=== PATIENT | male | born 1950 | race Caucasian/White ===

== ENCOUNTER 2020-03-24 14:24 | Emergency (ER) | payer MEDICARE ==
[2020-03-24] MEDS ORDERED: Lisinopril 20 MG Tab PO STA (15:07)
--- NOTE | 2020-03-24 15:11 | EDM.PDOC ---
ED HPI GENERAL MEDICAL PROBLEM - General Chief Complaint: Neuro Symptoms/Deficits Stated Complaint: WEAK FOR THE PAST WEEK Time Seen by Provider: 03/24/20 14:56 Source of Information: Reports: Patient, RN Notes Reviewed History Limitations: Reports: No Limitations - History of Present Illness INITIAL COMMENTS - FREE TEXT/NARRATIVE: 69-year-old gentleman presents emergency department a complaint of weakness and some confusion he states it has been going on for the last week or so he is also noticed some problems with his balance he admits that he has high blood pressure but is never taken any medication for it. Very poor historian difficult to assess - Related Data Allergies Allergy/AdvReac Type Severity Reaction Status Date / Time No Known Allergies Allergy Verified 03/24/20 14:53 Home Meds: Home Meds lisinopriL [Lisinopril] 10 mg PO DAILY #30 tablet 03/24/20 [Rx] metFORMIN [Glucophage XR] 500 mg PO DAILY 03/24/20 [History] Past Medical History HEENT History: Reports: Impaired Vision Psychiatric History: Reports: Depression Endocrine/Metabolic History: Reports: Diabetes, Type II - Infectious Disease History Infectious Disease History: Reports: Chicken Pox, Measles - Past Surgical History GI Surgical History: Reports: Appendectomy Social & Family History - Tobacco Use Tobacco Use Status *Q: Current Every Day Tobacco User Years of Tobacco use: 20 Packs/Tins Daily: 0.5 - Caffeine Use Caffeine Use: Reports: Soda - Recreational Drug Use Recreational Drug Use: No ED ROS GENERAL - Review of Systems Review Of Systems: See Below Constitutional: Reports: Weakness, Fatigue. Denies: Fever HEENT: Reports: No Symptoms Respiratory: Reports: No Symptoms Cardiovascular: Reports: No Symptoms GI/Abdominal: Reports: No Symptoms Neurological: Reports: Confusion ED EXAM, NEURO - Physical Exam Exam: See Below Exam Limited By: No Limitations General Appearance: Alert, WD/WN, No Apparent Distress Respiratory/Chest: No Respiratory Distress, Lungs Clear, Normal Breath Sounds, No Accessory Muscle Use, Chest Non-Tender Cardiovascular: Regular Rate, Rhythm, No Murmur GI/Abdominal: Soft, Non-Tender Neurological: Alert, CN II-XII Intact, No Motor/Sensory Deficits, Oriented x 3. No: Abnormal Finger to Nose, Difficulty Walking Back Exam: Normal Inspection, Full Range of Motion. No: CVA Tenderness (R), CVA Tenderness (L) Extremities: No Pedal Edema Skin Exam: Warm, Dry Course - Vital Signs Last Recorded V/S: Last Vital Signs Temp 96.5 F L 03/24/20 14:47 Pulse 82 03/24/20 16:43 Resp 21 H 03/24/20 16:09 BP 155/89 H 03/24/20 16:43 Pulse Ox 97 03/24/20 16:09 - Orders/Labs/Meds Orders: Active Orders 24 hr Category Date Time Status EKG Documentation Completion [RC] ASDIRECTED Care 03/24/20 15:08 Active Chest 2V [CR] Stat Exams 03/24/20 15:07 Taken EKG 12 Lead [EK] Stat Ther 03/24/20 15:07 Ordered Labs: Laboratory Tests 03/24/20 03/24/20 03/24/20 Range/Units 15:20 15:20 15:20 WBC 6.1 (4.5-11.0) K/uL RBC 5.52 (4.30-5.90) M/uL Hgb 16.7 H (12.0-15.0) g/dL Hct 48.2 (40.0-54.0) % MCV 87 (80-98) fL MCH 30 (27-31) pg MCHC 35 (32-36) % Plt Count 179 (150-400) K/uL Neut % (Auto) 57 (36-66) % Lymph % (Auto) 28 (24-44) % [place] % (Auto) 7 H (2-6) % Eos % (Auto) 6 H (2-4) % Baso % (Auto) 1 (0-1) % D-Dimer, Quantitative (0.0-500.0) ng/mL Sodium 141 (140-148) mmol/L Potassium 3.9 (3.6-5.2) mmol/L Chloride 105 (100-108) mmol/L Carbon Dioxide 26 (21-32) mmol/L Anion Gap 9.6 (5.0-14.0) mmol/L BUN 18 (7-18) mg/dL Creatinine 1.3 (0.8-1.3) mg/dL Est Cr Clr Drug Dosing 49.43 mL/min Estimated GFR (MDRD) 55 L (>60) Glucose 147 H (74-106) mg/dL Lactic Acid (0.4-2.0) mmol/L Calcium 8.8 (8.5-10.1) mg/dL Total Bilirubin 1.2 H (0.2-1.0) mg/dL AST 20 (15-37) U/L ALT 37 (12-78) U/L Alkaline Phosphatase 55 (46-116) U/L Ammonia 14 (11-32) mmol/L Troponin I < 0.017 (0.000-0.056) ng/mL NT-Pro-B Natriuret Pep (5-125) pg/mL Total Protein 7.0 (6.4-8.2) g/dL Albumin 3.7 (3.4-5.0) g/dL Globulin 3.3 (2.3-3.5) g/dL Albumin/Globulin Ratio 1.1 L (1.2-2.2) Urine Color (YELLOW) Urine Appearance (CLEAR) Urine pH (5.0-8.0) Ur Specific [place] (1.008-1.030) Urine Protein (NEGATIVE) mg/dL Urine Glucose (UA) (NEGATIVE) mg/dL Urine Ketones (NEGATIVE) mg/dL Urine Occult Blood (NEGATIVE) Urine Nitrite (NEGATIVE) Urine Bilirubin (NEGATIVE) Urine Urobilinogen (0.2-1.0) EU/dL Ur Leukocyte Esterase (NEGATIVE) Urine RBC (0-5) Urine WBC (0-5) Ur Epithelial Cells Amorphous Sediment Urine Bacteria Urine Mucus Ethyl Alcohol mg/dL 03/24/20 03/24/20 03/24/20 Range/Units 15:20 15:20 15:20 WBC (4.5-11.0) K/uL RBC (4.30-5.90) M/uL Hgb (12.0-15.0) g/dL Hct (40.0-54.0) % MCV (80-98) fL MCH (27-31) pg MCHC (32-36) % Plt Count (150-400) K/uL Neut % (Auto) (36-66) % Lymph % (Auto) (24-44) % [place] % (Auto) (2-6) % Eos % (Auto) (2-4) % Baso % (Auto) (0-1) % D-Dimer, Quantitative 580.03 H (0.0-500.0) ng/mL Sodium (140-148) mmol/L Potassium (3.6-5.2) mmol/L Chloride (100-108) mmol/L Carbon Dioxide (21-32) mmol/L Anion Gap (5.0-14.0) mmol/L BUN (7-18) mg/dL Creatinine (0.8-1.3) mg/dL Est Cr Clr Drug Dosing mL/min Estimated GFR (MDRD) (>60) Glucose (74-106) mg/dL Lactic Acid 1.1 (0.4-2.0) mmol/L Calcium (8.5-10.1) mg/dL Total Bilirubin (0.2-1.0) mg/dL AST (15-37) U/L ALT (12-78) U/L Alkaline Phosphatase (46-116) U/L Ammonia (11-32) mmol/L Troponin I (0.000-0.056) ng/mL NT-Pro-B Natriuret Pep (5-125) pg/mL Total Protein (6.4-8.2) g/dL Albumin (3.4-5.0) g/dL Globulin (2.3-3.5) g/dL Albumin/Globulin Ratio (1.2-2.2) Urine Color (YELLOW) Urine Appearance (CLEAR) Urine pH (5.0-8.0) Ur Specific [place] (1.008-1.030) Urine Protein (NEGATIVE) mg/dL Urine Glucose (UA) (NEGATIVE) mg/dL Urine Ketones (NEGATIVE) mg/dL Urine Occult Blood (NEGATIVE) Urine Nitrite (NEGATIVE) Urine Bilirubin (NEGATIVE) Urine Urobilinogen (0.2-1.0) EU/dL Ur Leukocyte Esterase (NEGATIVE) Urine RBC (0-5) Urine WBC (0-5) Ur Epithelial Cells Amorphous Sediment Urine Bacteria Urine Mucus Ethyl Alcohol < 3 mg/dL 03/24/20 03/24/20 Range/Units 15:20 16:52 WBC (4.5-11.0) K/uL RBC (4.30-5.90) M/uL Hgb (12.0-15.0) g/dL Hct (40.0-54.0) % MCV (80-98) fL MCH (27-31) pg MCHC (32-36) % Plt Count (150-400) K/uL Neut % (Auto) (36-66) % Lymph % (Auto) (24-44) % [place] % (Auto) (2-6) % Eos % (Auto) (2-4) % Baso % (Auto) (0-1) % D-Dimer, Quantitative (0.0-500.0) ng/mL Sodium (140-148) mmol/L Potassium (3.6-5.2) mmol/L Chloride (100-108) mmol/L Carbon Dioxide (21-32) mmol/L Anion Gap (5.0-14.0) mmol/L BUN (7-18) mg/dL Creatinine (0.8-1.3) mg/dL Est Cr Clr Drug Dosing mL/min Estimated GFR (MDRD) (>60) Glucose (74-106) mg/dL Lactic Acid (0.4-2.0) mmol/L Calcium (8.5-10.1) mg/dL Total Bilirubin (0.2-1.0) mg/dL AST (15-37) U/L ALT (12-78) U/L Alkaline Phosphatase (46-116) U/L Ammonia (11-32) mmol/L Troponin I (0.000-0.056) ng/mL NT-Pro-B Natriuret Pep 689 H (5-125) pg/mL Total Protein (6.4-8.2) g/dL Albumin (3.4-5.0) g/dL Globulin (2.3-3.5) g/dL Albumin/Globulin Ratio (1.2-2.2) Urine Color Yellow (YELLOW) Urine Appearance Clear (CLEAR) Urine pH 5.0 (5.0-8.0) Ur Specific [place] 1.025 (1.008-1.030) Urine Protein 100 H (NEGATIVE) mg/dL Urine Glucose (UA) Negative (NEGATIVE) mg/dL Urine Ketones Negative (NEGATIVE) mg/dL Urine Occult Blood Moderate H (NEGATIVE) Urine Nitrite Negative (NEGATIVE) Urine Bilirubin Negative (NEGATIVE) Urine Urobilinogen 0.2 (0.2-1.0) EU/dL Ur Leukocyte Esterase Negative (NEGATIVE) Urine RBC 0-5 (0-5) Urine WBC Not seen (0-5) Ur Epithelial Cells Not seen Amorphous Sediment Moderate Urine Bacteria Not seen Urine Mucus Many Ethyl Alcohol mg/dL Meds: Medications Discontinued Medications Generic Name Dose Route Start Last Admin Trade Name Uriah PRN Reason Stop Dose Admin Lisinopril 20 mg 03/24/20 15:07 03/24/20 15:13 Prinivil PO 03/24/20 15:08 20 mg NOW STA Administration Departure - Departure Time of Disposition: 17:14 Disposition: Home, Self-Care 01 Condition: Fair Clinical Impression: Hypertensive urgency - Discharge Information Instructions: Hypertension, Adult, [id number] Referrals: PCP,None [Primary Care Provider] - Forms: ED Department Discharge Additional Instructions: Try the lisinopril 1 tablet daily, please follow-up with your primary care in the next 3 to 5 days for reevaluation, call return to the emergency department worsening of symptoms Sepsis Event Note (ED) - Evaluation Sepsis Screening Result: No Definite Risk - Focused Exam Vital Signs: Vital Signs Temp Pulse Resp BP BP Pulse Ox 03/24/20 16:43 82 155/89 H 03/24/20 16:09 70 21 H 173/88 H 97 03/24/20 15:13 217/107 H 03/24/20 14:47 96.5 F L 86 22 H 217/107 H 96 - My Orders Last 24 Hours: My Active Orders 03/24/20 15:07 Chest 2V [CR] Stat EKG 12 Lead [EK] Stat 03/24/20 15:08 EKG Documentation Completion [RC] ASDIRECTED - Assessment/Plan Last 24 Hours: My Active Orders 03/24/20 15:07 Chest 2V [CR] Stat EKG 12 Lead [EK] Stat 03/24/20 15:08 EKG Documentation Completion [RC] ASDIRECTED Plan: Assessment Acuity = acute Site and laterality = hypertensive urgency Etiology = unknown Manifestations = confusion difficulty concentrating Location of injury = Home Lab values = CBC, CMP, troponin all within normal limits urinalysis unremarkable CT scan head does show chronic small vessel disease chest x-ray I did review films myself I cannot appreciate any acute process, the official read from radiology is pending Plan He had good improvement in his blood pressure with lisinopril prescription written for lisinopril 10 mg 1 tab p.o. daily he is can follow-up with his primary care in the next 3 to 5 days for reevaluation This note was dictated using [employer] voice recognition software please call with any questions on syntax or grammar.
--- NOTE | 2020-03-24 16:25 | CRLCT ---
INDICATION: Confusion. Tired. TECHNIQUE: Head CT without contrast. COMPARISON: None FINDINGS: CSF spaces: Prominence of the ventricles and the sulci likely due to age related volume loss. Brain parenchyma: Periventricular and subcortical white matter hypoattenuation is non specific but likely due to chronic small vessel ischemic changes. 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 No sign of mass, hemorrhage, or midline shift. Skull base and calvarium: The visualized paranasal sinuses and mastoid air cells demonstrate no acute or significant findings. The visualized orbits are grossly unremarkable. No skull fractures. IMPRESSION: No acute intracranial abnormality. Chronic small vessel ischemic changes and age related volume loss. Please note that all CT scans at this facility use dose modulation, iterative reconstruction, and/or weight-based dosing when appropriate to reduce radiation dose to as low as reasonably achievable. Dictated by Nima Leal MD @ Mar 24 2020 4:17PM Signed by Dr. Nima Leal @ Mar 24 2020 4:22PM
--- NOTE | 2020-03-25 10:12 | CR ---
CHEST: 2 view CLINICAL HISTORY:SOB COMPARISON:None FINDINGS: The heart size, pulmonary vascularity and hilar structures are normal. No infiltrate effusion or pneumothorax is seen. IMPRESSION: No acute cardiopulmonary process.
== END 2020-03-24 17:23 | disposition home or self-care (01) ==
LOC: JP.ED 14:24
DX: I16.0 Hypertensive urgency (principal); E11.9 Type 2 diabetes mellitus without complications; F17.210 Nicotine dependence, cigarettes, uncomplicated
CPT/HCPCS: 36415; 70450; 71046; 80053; 80307; 81001; 82140; 83605; 83880; 84484; 85025; 85379; 93005; 93010; 99284; 99285; A9270

== ENCOUNTER 2021-03-21 16:22 | Inpatient (IN) | payer MEDICARE ==
[2021-03-21] MEDS ORDERED: Lactated Ringers 1,000 ML IV SCH (16:30)
[2021-03-21] MEDS ORDERED: cefTRIAXone 2 GM in Sodium Chloride 0.9% 100 ML IV SCH (17:00)
[2021-03-21] MEDS ORDERED: Lactated Ringers 1,000 ML IV ONE ×2 (17:24→18:28)
[2021-03-21 17:54] LABS: CORONAVIRUS COVID-19 NAA NEGATIVE (NEGATIVE)
[2021-03-21] MEDS ORDERED: Nitroglycerin 0.4 MG Tab.SL SL ONE (18:10)
[2021-03-21] MEDS ORDERED: Labetalol 100 MG in Sodium Chloride 0.9% 80 ML IV SCH (19:00)
[2021-03-21] MEDS ORDERED: Labetalol 20 MG/4 ML Syringe ONE (19:18)
[2021-03-21] MEDS ORDERED: Sodium Chloride 0.9% 100 ML ONE (19:18)
[2021-03-21] MEDS ORDERED: OLANZapine 10 MG Vial IM ONE (19:56)
[2021-03-21] MEDS ORDERED: Water For Injection, Sterile 20 ML ONE (19:59)
[2021-03-21] MEDS: Piperacillin/Tazobactam 3.375 GM in Sodium Chloride 0.9% 50 ML IV SCH (20:47)
[2021-03-22] MEDS: Piperacillin/Tazobactam 3.375 GM in Sodium Chloride 0.9% 50 ML IV SCH ×2 (01:57→07:40)
[2021-03-22] MEDS ORDERED: Piperacillin/Tazobactam/Dext 3.375 GM in Premix Bag 1 BAG IV SCH (14:00)
[2021-03-22] MEDS ORDERED: Sodium Chloride 0.9% 10 ML Syringe FLUSH PRN (14:41)
[2021-03-22] MEDS ORDERED: Glucose Gel 15 GM in 37.5 GM Tube PO PRN (14:41)
[2021-03-22] MEDS ORDERED: Polyethylene Glycol 3350 Powder 17 GM Packet PO PRN (14:41)
[2021-03-22] MEDS ORDERED: 50% Dextrose in Water 50 ML Syringe IV PRN (14:41)
[2021-03-22] MEDS ORDERED: Ondansetron 4 MG/2 ML SDV IV PRN (14:41)
[2021-03-22] MEDS ORDERED: Acetaminophen 325 MG Tab PO PRN (14:41)
[2021-03-22] MEDS: Sodium Chloride 0.9% 1,000 ML IV SCH ×2 (15:04→21:23)
[2021-03-22] MEDS: Enoxaparin 40 MG/0.4 ML Syringe SUBCUT SCH (15:13)
[2021-03-22] MEDS: Insulin Lispro 100 Unit/ML 3 ML KwikPen SUBCUT SCH ×2 (17:35→22:29)
[2021-03-23] MEDS: hydrALAZINE 20 MG/ML SDV IVPUSH PRN ×3 (04:23→15:27)
[2021-03-23] MEDS: Sodium Chloride 0.9% 1,000 ML IV SCH (05:20)
[2021-03-23] MEDS: Insulin Lispro 100 Unit/ML 3 ML KwikPen SUBCUT SCH ×4 (08:30→20:24)
[2021-03-23] MEDS: Enoxaparin 40 MG/0.4 ML Syringe SUBCUT SCH (08:53)
[2021-03-23] MEDS ORDERED: Sodium Chloride 0.9% 1,000 ML IV SCH (11:30)
[2021-03-24] MEDS: hydrALAZINE 20 MG/ML SDV IVPUSH PRN ×3 (00:03→08:19)
[2021-03-24] MEDS: Insulin Lispro 100 Unit/ML 3 ML KwikPen SUBCUT SCH ×4 (08:16→21:24)
[2021-03-24] MEDS: Enoxaparin 40 MG/0.4 ML Syringe SUBCUT SCH (08:17)
[2021-03-24] MEDS ORDERED: Sodium Chloride 0.9% 1,000 ML IV SCH (09:45)
[2021-03-24] MEDS ORDERED: Piperacillin/Tazobactam 3.375 GM in Sodium Chloride 0.9% 50 ML IV SCH (09:45)
[2021-03-24] MEDS: Metoprolol Tartrate 5 MG/5 ML SDV IVPUSH SCH ×3 (10:17→22:45)
[2021-03-24] MEDS: Piperacillin/Tazobactam/Dext 3.375 GM in Premix Bag 1 BAG IV SCH ×3 (10:18→22:45)
[2021-03-24] MEDS: Dextrose 5% in Water 1,000 ML IV SCH (10:46)
[2021-03-25] MEDS: Metoprolol Tartrate 5 MG/5 ML SDV IVPUSH SCH ×4 (04:08→22:04)
[2021-03-25] MEDS: Piperacillin/Tazobactam/Dext 3.375 GM in Premix Bag 1 BAG IV SCH ×4 (04:08→22:03)
[2021-03-25] MEDS: Dextrose 5% in Water 1,000 ML IV SCH ×2 (06:22→23:58)
[2021-03-25] MEDS: Insulin Lispro 100 Unit/ML 3 ML KwikPen SUBCUT SCH ×4 (07:43→20:09)
[2021-03-25] MEDS: hydrALAZINE 20 MG/ML SDV IVPUSH PRN (07:51)
[2021-03-25] MEDS ORDERED: Dextrose 5% in Water 1,000 ML IV SCH (09:45)
[2021-03-25] MEDS: Enoxaparin 40 MG/0.4 ML Syringe SUBCUT SCH (09:48)
[2021-03-25] MEDS ORDERED: Acetaminophen 650 MG Supp RECTAL PRN (14:53)
[2021-03-25] MEDS ORDERED: Levofloxacin/Dextrose 5%-Water 750 MG in Premix Bag 1 BAG IV SCH (15:00)
[2021-03-26] MEDS: Piperacillin/Tazobactam/Dext 3.375 GM in Premix Bag 1 BAG IV SCH ×4 (03:57→21:23)
[2021-03-26] MEDS: Metoprolol Tartrate 5 MG/5 ML SDV IVPUSH SCH ×4 (03:57→21:15)
[2021-03-26] MEDS: Insulin Lispro 100 Unit/ML 3 ML KwikPen SUBCUT SCH ×4 (06:55→19:58)
[2021-03-26] MEDS: Enoxaparin 40 MG/0.4 ML Syringe SUBCUT SCH (08:36)
[2021-03-26] MEDS: Dextrose 5% in Water 1,000 ML IV SCH ×2 (10:47→21:22)
[2021-03-26] MEDS ORDERED: Gadoteridol 279.3 MG/ML 20 ML SDV IV SCH (13:00)
[2021-03-27] MEDS: Metoprolol Tartrate 5 MG/5 ML SDV IVPUSH SCH ×4 (02:54→21:06)
[2021-03-27] MEDS: hydrALAZINE 20 MG/ML SDV IVPUSH PRN (03:40)
[2021-03-27] MEDS: Piperacillin/Tazobactam/Dext 3.375 GM in Premix Bag 1 BAG IV SCH ×2 (03:44→09:33)
[2021-03-27] MEDS: Insulin Lispro 100 Unit/ML 3 ML KwikPen SUBCUT SCH ×4 (07:25→21:04)
[2021-03-27] MEDS: Potassium Chloride 20 MEQ, Lidocaine 1% 2 ML in Sodium Chloride 0.9% 100 ML IV SCH ×2 (09:35→12:44)
[2021-03-27] MEDS: Enoxaparin 40 MG/0.4 ML Syringe SUBCUT SCH (09:37)
[2021-03-27] MEDS: D5 1/2 NS w/ 20 mEq/L KCl 1,000 ML IV SCH (09:43)
[2021-03-27] MEDS: levETIRAcetam 500 MG in Sodium Chloride 0.9% 100 ML IV SCH ×2 (10:47→21:09)
[2021-03-27] MEDS: Levofloxacin/Dextrose 5%-Water 750 MG in Premix Bag 1 BAG IV SCH (13:54)
[2021-03-28] MEDS: D5 1/2 NS w/ 20 mEq/L KCl 1,000 ML IV SCH ×2 (01:28→14:06)
[2021-03-28] MEDS: Metoprolol Tartrate 5 MG/5 ML SDV IVPUSH SCH ×4 (02:55→20:54)
[2021-03-28] MEDS: Insulin Lispro 100 Unit/ML 3 ML KwikPen SUBCUT SCH ×4 (07:39→20:51)
[2021-03-28] MEDS: levETIRAcetam 500 MG in Sodium Chloride 0.9% 100 ML IV SCH ×2 (09:47→21:00)
[2021-03-28] MEDS: Levofloxacin/Dextrose 5%-Water 750 MG in Premix Bag 1 BAG IV SCH (14:02)
[2021-03-29] MEDS: Metoprolol Tartrate 5 MG/5 ML SDV IVPUSH SCH ×4 (03:51→22:05)
[2021-03-29] MEDS: D5 1/2 NS w/ 20 mEq/L KCl 1,000 ML IV SCH ×2 (06:09→17:42)
[2021-03-29] MEDS: Insulin Lispro 100 Unit/ML 3 ML KwikPen SUBCUT SCH ×4 (07:38→22:11)
[2021-03-29] MEDS: levETIRAcetam 500 MG in Sodium Chloride 0.9% 100 ML IV SCH ×2 (10:02→22:08)
[2021-03-30] MEDS: Metoprolol Tartrate 5 MG/5 ML SDV IVPUSH SCH ×4 (03:56→21:54)
[2021-03-30] MEDS: Insulin Lispro 100 Unit/ML 3 ML KwikPen SUBCUT SCH ×4 (08:26→22:00)
[2021-03-30] MEDS: D5 1/2 NS w/ 20 mEq/L KCl 1,000 ML IV SCH ×2 (08:28→21:45)
[2021-03-30] MEDS: Enoxaparin 40 MG/0.4 ML Syringe SUBCUT SCH (08:35)
[2021-03-30] MEDS: levETIRAcetam 500 MG in Sodium Chloride 0.9% 100 ML IV SCH ×2 (10:16→21:59)
[2021-03-31] MEDS: Metoprolol Tartrate 5 MG/5 ML SDV IVPUSH SCH ×4 (03:27→21:44)
[2021-03-31] MEDS: Insulin Lispro 100 Unit/ML 3 ML KwikPen SUBCUT SCH ×4 (07:31→20:50)
[2021-03-31] MEDS: Enoxaparin 40 MG/0.4 ML Syringe SUBCUT SCH (08:41)
[2021-03-31] MEDS: levETIRAcetam 500 MG in Sodium Chloride 0.9% 100 ML IV SCH ×2 (09:44→21:38)
[2021-03-31] MEDS: D5 1/2 NS w/ 20 mEq/L KCl 1,000 ML IV SCH (12:17)
[2021-03-31] MEDS ORDERED: D5 1/2 NS w/ 20 mEq/L KCl 1,000 ML IV SCH (13:15)
[2021-03-31] MEDS: hydrALAZINE 20 MG/ML SDV IVPUSH PRN (13:40)
[2021-04-01] MEDS: Metoprolol Tartrate 5 MG/5 ML SDV IVPUSH SCH ×2 (03:43→10:11)
[2021-04-01] MEDS: hydrALAZINE 20 MG/ML SDV IVPUSH PRN (05:30)
[2021-04-01] MEDS: Insulin Lispro 100 Unit/ML 3 ML KwikPen SUBCUT SCH ×2 (07:43→11:22)
[2021-04-01] MEDS: Enoxaparin 40 MG/0.4 ML Syringe SUBCUT SCH (08:55)
[2021-04-01] MEDS ORDERED: Amiodarone 150 MG/3 ML SDV IVPUSH ONE (09:30)
[2021-04-01] MEDS ORDERED: Magnesium Sulfate/Water 2 GM in Premix Bag 1 BAG IV ONE (09:30)
[2021-04-01] MEDS: levETIRAcetam 500 MG in Sodium Chloride 0.9% 100 ML IV SCH ×2 (10:11→22:23)
[2021-04-01] MEDS ORDERED: LORazepam ORAL Concentrate 1MG/0.5ML U/D BUCCAL PRN (13:36)
[2021-04-02] MEDS: levETIRAcetam 500 MG in Sodium Chloride 0.9% 100 ML IV SCH ×2 (09:58→21:55)
[2021-04-02] MEDS: Morphine 10 MG/0.5 ML Oral Syringe BUCCAL PRN (11:53)
[2021-04-03] MEDS: levETIRAcetam 500 MG in Sodium Chloride 0.9% 100 ML IV SCH ×2 (10:17→21:44)
[2021-04-04] MEDS: levETIRAcetam 500 MG in Sodium Chloride 0.9% 100 ML IV SCH ×2 (09:57→22:12)
[2021-04-04] MEDS: Morphine 10 MG/0.5 ML Oral Syringe BUCCAL PRN (21:35)
[2021-04-05] MEDS: Morphine 10 MG/0.5 ML Oral Syringe BUCCAL PRN ×4 (02:08→11:19)
[2021-04-05] MEDS: levETIRAcetam 500 MG in Sodium Chloride 0.9% 100 ML IV SCH (09:35)
== END 2021-04-05 16:07 | disposition expired | DRG 557 ==
LOC: JP.ED 16:22 → JP.ICU 03-22 14:27
PROVIDERS: ADMIT Hospitalist; ATTEND Hospitalist
PROC: 009U3ZX Drainage of Spinal Canal, Percutaneous Approach, Diagnostic (ICD-10-PCS; principal; 2021-03-28)
DX: A41.9 Sepsis, unspecified organism (principal); M62.82 Rhabdomyolysis; R00.0 Tachycardia, unspecified; I63.9 Cerebral infarction, unspecified; J96.90 Respiratory failure, unspecified, unspecified whether with hypoxia or hypercapnia; G93.40 Encephalopathy, unspecified; E87.0 Hyperosmolality and hypernatremia; N13.6 Pyonephrosis; I47.2 Ventricular tachycardia; F05 Delirium due to known physiological condition; F10.239 Alcohol dependence with withdrawal, unspecified; H54.7 Unspecified visual loss; E66.9 Obesity, unspecified; E11.9 Type 2 diabetes mellitus without complications; I10 Essential (primary) hypertension; R45.1 Restlessness and agitation; Z20.822 Contact with and (suspected) exposure to COVID-19; Z51.5 Encounter for palliative care; F32.A Depression, unspecified; T43.595A Adverse effect of other antipsychotics and neuroleptics, initial encounter; Z90.49 Acquired absence of other specified parts of digestive tract; Z79.84 Long term (current) use of oral hypoglycemic drugs; Z79.899 Other long term (current) drug therapy
CPT/HCPCS: 0241U; 36415; 36600; 70450; 70450-26; 70553; 70553-26; 71045; 71045-26; 74176; 76705; 76705-26; 80048; 80053; 80143; 80179; 80307; 81001; 82009; 82140; 82550; 82803; 82945; 82947; 83605; 83735; 84145; 84157; 84295; 84484; 85025; 85027; 85610; 86140; 87040; 87070; 87205; 89050; 93005; 93010; 93306; 96365; 96366; 96367; 96372; 96376; 99221; 99231; 99232; 99238; 99284; 99285-25; A9270-GY; A9579; J0282; J0360; J0696; J1650; J1815; J1953; J1956; J2543; J3370; J3475; J3480; J3490; J7030; J7050; J7060; J7120